=== PATIENT | male | born 1970 ===

== ENCOUNTER 2019-01-14 13:45 | Emergency (ER) | payer OTHER ==
[2019-01-14 13:53] VITALS: TEMP 97.8
[2019-01-14 14:33] LABS: BASO % 0.3 % (0.0-2.0); EOS # 0.1 K/uL (0.0-0.7); EOS % 1.5 % (0.0-4.0); HEMOGLOBIN 15.8 g/dL (12.0-18.0); LYMPH # 1.3 K/uL (1.0-4.3); LYMPH % 16.3 % (20.0-40.0); MEAN CELL VOLUME 86.4 fL (80.0-94.0); MEAN CORPUSCULAR HEMOGLOBIN 29.7 pg (27.0-31.0); MEAN CORPUSCULAR HGB CONC 34.3 g/dL (33.0-37.0); MEAN PLATELET VOLUME 8.7 fL (7.2-11.7); MONO # 0.4 K/uL (0.0-0.8); NEUT % 76.9 % (50.0-75.0); RBC 5.34 Mil/uL (4.40-5.90); WHITE BLOOD COUNT 7.8 K/uL (4.8-10.8)
[2019-01-14 14:52] LABS: ALB/GLOB RATIO 1.6 (1.0-2.1); ALBUMIN 4.6 g/dL (3.5-5.0); ALT/SGPT 26 U/L (21-72); AST/SGOT 34 U/L (17-59); BLOOD UREA NITROGEN 18 mg/dL (9-20); CALCIUM 9.1 mg/dl (8.6-10.4); GFR NON-AFRICAN AMERICAN 59
--- NOTE | 2019-01-14 15:15 | RAD ---
Date of service: 01/14/2019 PROCEDURE: CHEST RADIOGRAPH, 1 VIEW HISTORY: hypertension COMPARISON: None available. FINDINGS: LUNGS: Clear. PLEURA: No pneumothorax or pleural fluid seen. CARDIOVASCULAR: No aortic atherosclerotic calcification present. Normal. OSSEOUS STRUCTURES: No significant abnormalities. VISUALIZED UPPER ABDOMEN: Normal. OTHER FINDINGS: None. IMPRESSION: No active disease.
--- NOTE | 2019-01-14 15:18 | C.PDOC ---
History Of Present Illness 48 y.o was sent from [facility] after a routine exam for elevated BP, systolic 206. Pt offers no physical complaints at this time. Given cla Denies fever, chills, blurred vision, double vision, CP, dizziness, ROJAS, and any other associated s ymptoms. Time Seen by Provider: 01/14/19 14:02 Chief Complaint (Nursing): High Blood Pressure History Per: Patient History/Exam Limitations: no limitations Onset/Duration Of Symptoms: Hrs Current Symptoms Are (Timing): Still Present Associated Symptoms: denies: Chest Pain, Dizziness, Blurred Vision, Headache Recent travel outside of the [place]: No Past Medical History Reviewed: Historical Data, Nursing Documentation, Vital Signs Vital Signs: Last Vital Signs Temp 97.8 F 01/14/19 13:48 Pulse 80 01/14/19 14:08 Resp 18 01/14/19 13:48 BP 160/116 H 01/14/19 13:48 Pulse Ox 100 01/14/19 13:48 Family History: States: Unknown Family Hx - Social History Hx Alcohol Use: No Hx Substance Use: No - Immunization History Hx Tetanus Toxoid Vaccination: No Hx Influenza Vaccination: No Hx Pneumococcal Vaccination: No Review Of Systems Except As Marked, All Systems Reviewed And Found Negative. Constitutional: Negative for: Fever, Chills Eyes: Negative for: Other ((-) blurred vision. (-) double vision.) Cardiovascular: Positive for: Other (elevated BP. ). Negative for: Chest Pain Neurological: Negative for: Headache, Dizziness Physical Exam - Physical Exam Appears: Non-toxic, No Acute Distress Skin: Warm, Dry Head: Atraumatic, Normacephalic Eye(s): bilateral: Normal Inspection Oral Mucosa: Moist Neck: Normal ROM, Supple Chest: Symmetrical, No Deformity Cardiovascular: Rhythm Regular, No Murmur Respiratory: Normal Breath Sounds, No Rales, No Rhonchi, No Wheezing Gastrointestinal/Abdominal: Normal Exam, Soft, No Tenderness Extremity: Bilateral: Atraumatic, Normal Color And Temperature, Normal ROM Neurological/Psych: Oriented x3, Normal Speech, Normal Cognition ED Course And Treatment - Laboratory Results Result Diagrams: 01/14/19 14:27 01/14/19 14:27 Lab Results: Troponin I < 0.0120 ng/mL (0.00-0.120) 01/14/19 14:27 Total Bilirubin 1.2 mg/dL (0.2-1.3) 01/14/19 14:27 AST 34 U/L (17-59) 01/14/19 14:27 ALT 26 U/L (21-72) 01/14/19 14:27 Alkaline Phosphatase 88 U/L (38-126) 01/14/19 14:27 Total Protein 7.5 g/dL (6.3-8.3) 01/14/19 14:27 Albumin 4.6 g/dL (3.5-5.0) 01/14/19 14:27 Globulin 2.9 gm/dL (2.2-3.9) 01/14/19 14:27 Albumin/Globulin Ratio 1.6 (1.0-2.1) 01/14/19 14:27 ECG: Interpreted By Me, Viewed By Me ECG Rhythm: Sinus Rhythm Interpretation Of ECG: normal axis. normal intervals Rate From EC O2 Sat by Pulse Oximetry: 100 (RA) Pulse Ox Interpretation: Normal - Other Rad CXR X-Ray: Viewed By Me, Read By Radiologist Interpretation: Date of service: 01/14/2019. PROCEDURE: CHEST RADIOGRAPH, 1 VIEW. HISTORY: hypertension. COMPARISON: None available. FINDINGS: LUNGS: Clear. PLEURA: No pneumothorax or pleural fluid seen. CARDIOVASCULAR: No aortic atherosclerotic calcification present. Normal. OSSEOUS STRUCTURES: No significant abnormalities. VISUALIZED UPPER ABDOMEN: Normal. OTHER FINDINGS: None. IMPRESSION: No active disease. Medical Decision Making Medical Decision Making: Initial plan: -EKG -Blood sent. -CXR Progress/Update: Re-eval: BP 160/100. Pt continues to be asymptomatic Pt stable for discharge home. Prescribed Catapres. Pt agreed to follow-up with PMD within 48 hrs. Disposition - Disposition Referrals: Kasi Lujan, [Non-Staff] - Disposition: HOME/ ROUTINE Disposition Time: 15:10 Condition: IMPROVED Additional Instructions: ALEXANDRIA LLAMAS, thank you for letting us take care of you today. The emergency medical care you received today was directed at your acute symptoms. If you were prescribed any medication, please fill it and take as directed. It may take several days for your symptoms to resolve. Return to the Emergency Department if your symptoms worsen, do not improve, or if you have any other problems. Please contact your doctor or call one of the physicians/clinics you have been referred to that are listed on the Patient Visit Information form that is included in your discharge packet. Bring any paperwork you were given at discharge with you along with any medications you are taking to your follow up visit. Our treatment cannot replace ongoing medical care by a primary care provider outside of the emergency department. Thank you for allowing the [facility] team to be part of your care today. Follow up with your primary care doctor in 2 days for re-evaluation and further management of your blood pressure. Prescriptions: cloNIDine [Catapres] 0.2 mg PO BID #6 tab Instructions: High Blood Pressure in Adults, Controlling Your Blood Pressure Through Lifestyle Forms: [employer] (Frisian) - Clinical Impression Clinical Impression: Hypertension - Scribe Statement The provider has reviewed the documentation as recorded by the Scribe (Kayla Forde) Provider Attestation: All medical record entries made by the Scribe were at my direction and personally dictated by me. I have reviewed the chart and agree that the record accurately reflects my personal performance of the history, physical exam, medical decision making, and the department course for this patient. I have also personally directed, reviewed, and agree with the discharge instructions and disposition.
[2019-01-14 15:23] VITALS: BP 167/110; PULSE 79; RESP 16
[2019-01-14 16:54] VITALS: O2SAT 100
--- NOTE | 2019-01-17 13:08 | CARD ---
APPROVED REPORT Date of service: 01/14/2019 EKG Measurement Heart [id number] <Conclusion> Normal sinus rhythm Normal ECG
== END 2019-01-14 16:00 | disposition home or self-care (01) ==
LOC: C.ER 13:45
DX: I10 Essential (primary) hypertension (principal)